=== PATIENT | male | born 1980 ===

== ENCOUNTER 2018-09-27 11:13 | Observation (INO) | payer OTHER ==
[2018-09-27] MEDS ORDERED: NITROGLYCERIN OINT 1 INCH/GM PACKET TOPICAL STA (11:33)
[2018-09-27] MEDS ORDERED: ASPIRIN 81 MG PO STA (11:33)
[2018-09-27] MEDS ORDERED: NITROGLYCERIN SL TABS 0.4 MG TAB SUBLINGUAL STA (11:33)
--- NOTE | 2018-09-27 12:09 | ED ---
General Adult HPI - General Chief complaint: Chest Pain Stated complaint: chest discomfort Source: patient, RN notes reviewed Mode of arrival: ambulatory Limitations: no limitations - History of Present Illness Initial comments: This is a 38-year-old male who presents emergency Department complaining of chest pain. Patient states it started 8:00 this morning. Patient states prior to that he felt fine this morning. Patient states the pain was a pressure in the left side of his chest. Patient states the pain is a pressure sensation and occasional increase in pain but not associated with movement or palpation. Patient states he might be a little bit short of breath today. Patient denies any diaphoretic episodes. Patient denies any nausea. Patient states he did have some tingling in both his hands. Patient denies any recent fever chills or cough. Patient denies abdominal pain patient denies nausea vomiting or diarrhea. Patient denies any headache patient denies numbness weakness. Patient states she hasn't seen a doctor in 10 years does not know if he has high blood pressure or high cholesterol. Patient does state he smokes. Patient denies any family history. - Related Data Home Medications Medication Instructions Recorded Confirmed No Known Home Medications 09/27/18 09/27/18 Allergies Allergy/AdvReac Type Severity Reaction Status Date / Time No Known Allergies Allergy Verified 09/27/18 11:33 Review of Systems ROS Statement: Those systems with pertinent positive or pertinent negative responses have been documented in the HPI. ROS Other: All systems not noted in ROS Statement are negative. Past Medical History Past Medical History: No Reported History History of Any Multi-Drug Resistant Organisms: None Reported Additional Past Surgical History / Comment(s): Vasectomy Past Psychological History: No Psychological Hx Reported Smoking Status: Former smoker Past Alcohol Use History: Occasional Past Drug Use History: Marijuana General Exam - General Exam Comments Initial Comments: GENERAL: Patient is well-developed and well-nourished. Patient is nontoxic and well- hydrated and is in mild distress. ENT: Neck is soft and supple. No significant lymphadenopathy is noted. Oropharynx is clear. Moist mucous membranes. Neck has full range of motion without eliciting any pain. EYES: The sclera were anicteric and conjunctiva were pink and moist. Extraocular movements were intact and pupils were equal round and reactive to light. Eyeli ds were unremarkable. PULMONARY: Unlabored respirations. Good breath sounds bilaterally. No audible rales rhonchi or wheezing was noted. CARDIOVASCULAR: There is a regular rate and rhythm without any murmurs gallops or rubs. Chest pain is not reproducible. There are no rashes in the area no erythema. ABDOMEN: Soft and nontender with normal bowel sounds. No palpable organomegaly was noted. There is no palpable pulsatile mass. SKIN: Skin is clear with no lesions or rashes and otherwise unremarkable. NEUROLOGIC: Patient is alert and oriented x3. Cranial nerves II through XII are grossly intact. Motor and sensory are also intact. Normal speech, volume and content. Symmetrical smile. MUSCULOSKELETAL: Normal extremities with adequate strength and full range of motion. No lower extremity swelling or edema. No calf tenderness. LYMPHATICS: No significant lymphadenopathy is noted PSYCHIATRIC: Normal psychiatric evaluation. Limitations: no limitations Course Vital Signs 09/27/18 11:16 Temperature 98.2 F Pulse Rate 88 Respiratory 18 Rate Blood Pressure 129/87 O2 Sat by Pulse 99 Oximetry Medical Decision Making - Medical Decision Making EKG shows sinus bradycardia 59 bpm WV interval is 164 QRS is 96 QT interval 410 QTC is 405 per patient's EKG shows no ST segment elevation or depression or T wave abnormalities are noted. Chest x-ray shows no acute abnormalities. Patient states nitro glycerin does seem to helped his chest pain. I indicated to the patient he needed to stay overnight and be heparinized and see cardiolo gy. Patient will talk to his and make that determination. I started heparin on the patient. Patient did finally agree to stay. I spoke with Dr. Whalen and he agreed to accept the patient I consult cardiology and I continued Nitropaste and aspirin on the floor. As well as heparin. - Lab Data Result diagrams: 09/27/18 11:55 09/27/18 11:55 Lab Results 09/27/18 09/27/18 09/27/18 Range/Units 11:55 11:55 11:55 WBC 6.4 (3.8-10.6) k/uL RBC 5.09 (4.30-5.90) m/uL Hgb 14.0 (13.0-17.5) gm/dL Hct 43.1 (39.0-53.0) % MCV 84.6 (80.0-100.0) fL MCH 27.6 (25.0-35.0) pg MCHC 32.6 (31.0-37.0) g/dL RDW 13.6 (11.5-15.5) % Plt Count 313 (150-450) k/uL Neutrophils % 61 % Lymphocytes % 27 % Monocytes % 6 % Eosinophils % 3 % Basophils % 1 % Neutrophils # 3.9 (1.3-7.7) k/uL Lymphocytes # 1.7 (1.0-4.8) k/uL Monocytes # 0.4 (0-1.0) k/uL Eosinophils # 0.2 (0-0.7) k/uL Basophils # 0.1 (0-0.2) k/uL PT 10.6 (9.0-12.0) sec INR 1.0 (<1.2) APTT 28.3 (22.0-30.0) sec D-Dimer <0.17 (<0.60) mg/L FEU Sodium 141 (137-145) mmol/L Potassium 4.1 (3.5-5.1) mmol/L Chloride 105 (98-107) mmol/L Carbon Dioxide 25 (22-30) mmol/L Anion Gap 11 mmol/L BUN 19 (9-20) mg/dL Creatinine 0.78 (0.66-1.25) mg/dL Est GFR (CKD-EPI)AfAm >90 (>60 ml/min/1.73 sqM) Est GFR (CKD-EPI)NonAf >90 (>60 ml/min/1.73 sqM) Glucose 96 (74-99) mg/dL Calcium 9.4 (8.4-10.2) mg/dL Magnesium 2.2 (1.6-2.3) mg/dL Total Bilirubin 0.7 (0.2-1.3) mg/dL AST 25 (17-59) U/L ALT 27 (21-72) U/L Alkaline Phosphatase 69 (38-126) U/L Troponin I (0.000-0.034) ng/mL Total Protein 7.4 (6.3-8.2) g/dL Albumin 4.7 (3.5-5.0) g/dL 09/27/18 Range/Units 11:55 WBC (3.8-10.6) k/uL RBC (4.30-5.90) m/uL Hgb (13.0-17.5) gm/dL Hct (39.0-53.0) % MCV (80.0-100.0) fL MCH (25.0-35.0) pg MCHC (31.0-37.0) g/dL RDW (11.5-15.5) % Plt Count (150-450) k/uL Neutrophils % % Lymphocytes % % Monocytes % % Eosinophils % % Basophils % % Neutrophils # (1.3-7.7) k/uL Lymphocytes # (1.0-4.8) k/uL Monocytes # (0-1.0) k/uL Eosinophils # (0-0.7) k/uL Basophils # (0-0.2) k/uL PT (9.0-12.0) sec INR (<1.2) APTT (22.0-30.0) sec D-Dimer (<0.60) mg/L FEU Sodium (137-145) mmol/L Potassium (3.5-5.1) mmol/L Chloride (98-107) mmol/L Carbon Dioxide (22-30) mmol/L Anion Gap mmol/L BUN (9-20) mg/dL Creatinine (0.66-1.25) mg/dL Est GFR (CKD-EPI)AfAm (>60 ml/min/1.73 sqM) Est GFR (CKD-EPI)NonAf (>60 ml/min/1.73 sqM) Glucose (74-99) mg/dL Calcium (8.4-10.2) mg/dL Magnesium (1.6-2.3) mg/dL Total Bilirubin (0.2-1.3) mg/dL AST (17-59) U/L ALT (21-72) U/L Alkaline Phosphatase (38-126) U/L Troponin I <0.012 (0.000-0.034) ng/mL Total Protein (6.3-8.2) g/dL Albumin (3.5-5.0) g/dL Critical Care Time Critical Care Time: Yes Total Critical Care Time: 35 Disposition Clinical Impression: Unstable angina pectoris Disposition: ADMITTED IP TO THIS HOSP Referrals: None,Stated [REFERRING] - 1-2 days Time of Disposition: 14:28
--- NOTE | 2018-09-27 12:13 | XR ---
EXAMINATION TYPE: XR chest 2V DATE OF EXAM: 09/27/2018 COMPARISON: None HISTORY: 38-year-old male with chest pain TECHNIQUE: PA and lateral views FINDINGS: The cardiomediastinal silhouette, aorta, and pulmonary vasculature are within normal limits. Lungs an d pleural spaces are clear. IMPRESSION: No acute cardiopulmonary process.
[2018-09-27 12:19] LABS: ALT 27 U/L (21-72); AST 25 U/L (17-59); African American GFR (CKD) >90 (>60 ml/min/1.73 sqM); Albumin 4.7 g/dL (3.5-5.0); Alkaline Phosphatase 69 U/L (38-126); Anion Gap 11 mmol/L; Blood Urea Nitrogen 19 mg/dL (9-20); Calcium 9.4 mg/dL (8.4-10.2); Carbon Dioxide 25 mmol/L (22-30); Chloride 105 mmol/L (98-107); Glucose 96 mg/dL (74-99); Magnesium 2.2 mg/dL (1.6-2.3); Non-African American GFR(CKD) >90 (>60 ml/min/1.73 sqM); Potassium 4.1 mmol/L (3.5-5.1); Sodium 141 mmol/L (137-145); Total Bilirubin 0.7 mg/dL (0.2-1.3); Total Protein 7.4 g/dL (6.3-8.2)
[2018-09-27 12:21] LABS: D-Dimer <0.17 mg/L FEU (<0.60); Partial Thromboplastin Time 28.3 sec (22.0-30.0); Prothrombin Time 10.6 sec (9.0-12.0)
[2018-09-27 12:31] LABS: Basophils # (A) 0.1 k/uL (0-0.2); Basophils % (A) 1 %; Eosinophils # (A) 0.2 k/uL (0-0.7); Eosinophils % (A) 3 %; HCT 43.1 % (39.0-53.0); Lymphocytes # (A) 1.7 k/uL (1.0-4.8); Lymphocytes % (A) 27 %; MCH 27.6 pg (25.0-35.0); MCHC 32.6 g/dL (31.0-37.0); MCV 84.6 fL (80.0-100.0); Mean Platelet Volume 6.4; Monocytes # (A) 0.4 k/uL (0-1.0); Monocytes % (A) 6 %; Neutrophils # (A) 3.9 k/uL (1.3-7.7); Neutrophils % (A) 61 %; Platelet Count 313 k/uL (150-450); RBC 5.09 m/uL (4.30-5.90); RDW 13.6 % (11.5-15.5); WBC 6.4 k/uL (3.8-10.6)
[2018-09-27] MEDS ORDERED: HEPARIN SODIUM,PORCINE 5,000 UNIT/ML 1 ML VIAL IV ONE (14:26)
[2018-09-27] MEDS ORDERED: NITROGLYCERIN SL TABS 0.4 MG TAB SUBLINGUAL PRN (14:28)
[2018-09-27] MEDS ORDERED: HEPARIN SOD,PORK IN 0.45% NACL 25,000 UNIT in 0.45% NACL 1 250ML.BAG IV SCH (14:30)
[2018-09-27] MEDS: NITROGLYCERIN OINT 1 INCH/GM PACKET TOPICAL SCH ×2 (18:32→22:07)
--- NOTE | 2018-09-27 21:51 | HP ---
HISTORY AND PHYSICAL CHIEF COMPLAINT: Left lateral chest pain. 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 He has been having some discomfort in the left lower lateral chest wall area on and off for several years. This started to get a bit worse on the day of admission and he started to become very anxious. He became a bit diaphoretic and had tingling in his fingertips and decided to come to the emergency room. He had no shortness of breath, nausea, etc. There was no radiation of the pain. He has had no fever, chills, sputum production, hemoptysis, etc. but he has otherwise been in perfect health. He has no history of hypertension. REVIEW OF SYSTEMS: He has had no other symptoms whatsoever. Past medical history, family history, personal and social histories reveal that he had a vasectomy and he is not allergic to any medication or taking any. He has a negative family history for heart disease. He does not smoke. He drinks some alcohol, but moderately. He does not use any drugs. PHYSICAL EXAM: Blood pressure 129/87, temperature 98.2, pulse 88, respirations 18. In general, he appeared to be well developed, well nourished, no acute distress. Skin color is normal. Skin is warm, dry. Lymph nodes not enlarged. Head, ears, eyes, nose, mouth, and throat were normal. Neck veins not distended. Chest is clear to auscultation, percussion, and there is no tenderness in the left lateral chest wall or costal margin area. Cardiac exam is normal. No murmurs or extra sounds. Abdomen is soft, nontender without visceromegaly or masses. Bowel sounds present. Extremities normal. Neurologically he is intact. IMPRESSION: 1. Left lower lateral chest wall pain, intermittent over 2 years. 2. Doubt cardiac disease. PLAN: 1. Bed rest. 2. IV fluids. 3. Serial EKGs and enzymes. 4. Cardiology consult. 5. He could be a candidate for further evaluation as an outpatient to rule out any other process including something in the left upper quadrant. MMODL / IJN: [id number] /
[2018-09-28 03:30] LABS: Cholesterol 193 mg/dL (<200); HDL Cholesterol 39 mg/dL (40-60); LDL Cholesterol,Calculated 135 mg/dL (0-99); Triglycerides 96 mg/dL (<150)
[2018-09-28] MEDS: NITROGLYCERIN OINT 1 INCH/GM PACKET TOPICAL SCH (05:11)
[2018-09-28 05:57] VITALS: TEMP 97.9
[2018-09-28 07:51] VITALS: BP 104/62; PULSE 64; RESP 16
[2018-09-28] MEDS ORDERED: ASPIRIN 325 MG TAB PO SCH (09:00)
[2018-09-28] MEDS ORDERED: ATORVASTATIN 40 MG TAB PO SCH (09:00)
--- NOTE | 2018-09-28 10:17 | P.CRDCN ---
History of Present Illness History of present illness: This is a pleasant 38-year-old male with no significant past medical history. He is a former smoker however he quit one year ago. He does not follow regularly with a physician. He denies prior history of coronary artery disease, hypertension, dyslipidemia and diabetes mellitus. We've seen in consultation secondary to chest discomfort. He states yesterday morning while at work he experienced a pain under the left breast felt like a nerve pain that was constant from [id number]. It was rather constant with no specific aggravating or alleviating factors. There was no radiation to the arm, back, neck or jaw. There is no associated shortness of breath, dizziness, palpitat ions, nausea, vomiting or diaphoresis. When he arrived to the emergency department he was having ongoing chest discomfort and was given nitro paste which did relieve chest discomfort. He has had no further symptoms of chest discomfort since arriving at the hospital. He is seen and examined resting comfortably in no acute distress. EKG reveals sinus mechanism no acute ST or T wave abnormalities noted. Heart rate 59. Chest x-ray is negative for an acute cardiopulmonary process. Laboratory data reviewed, WBC 6.4, hemoglobin 14, platelets 313, d-dimer less than 0.17, sodium 141, potassium 4.1, creatinine 0.78, magnesium 2.2, cardiac enzymes negative 3, LDL 135 and HDL 39. He takes no daily cardiac medications. At the time of my exam: CONSTITUTIONAL: Denies fever. Denies chills. EYES: Denies blurred vision. Denies vision changes. Denies eye pain. EARS, NOSE, MOUTH & THROAT: Denies headache. Denies sore throat. Denies ear pain. CARDIOVASCULAR: Denies chest pain. Denies shortness of breath. Denies orthopnea. Denies PND. Denies palpitations. RESPIRATORY: Denies cough. GASTROINTESTINAL: Denies abdominal pain. Denies diarrhea. Denies constipation. Denies nausea. Denies vomiting. MUSCULOSKELETAL: Denies myalgias. INTEGUMENTARY: Denies pruitis. Denies rash. NEUROLOGIC: Denies numbness. Denies tingling. Denies weakness. PSYCHIATRIC: Denies anxiety. Denies depression. ENDOCRINE: Denies fatigue. Denies weight change. Denies polydipsia. Denies polyurina. GENITOURINARY: Denies burning, hematuria or urgency with micturation. HEMATOLOGIC: Denies history of anemia. Denies bleeding. Blood pressure 104/62 heart rate 64 afebrile maintaining oxygen saturation on room air GENERAL: This is a 38-year-old occasion male in no apparent distress at the time of my examination. HEENT: Head is atraumatic, normocephalic. Pupils are equal, round. Sclerae anicteric. Conjunctivae are clear. Mucous membranes of the mouth are moist. Neck is supple. There is no jugular venous distention. No carotid bruit is heard. LUNGS: Clear to auscultation no wheezes, rales or rhonchi. No chest wall tendern ess is noted on palpation or with deep breathing. HEART: Regular rate and rhythm without murmurs, rubs or gallops. S1 and S2 heard. ABDOMEN: Soft, nontender. Bowel sounds are heard. No organomegaly noted. EXTREMITIES: No evidence of peripheral edema and no calf tenderness noted. VASCULAR: Radial and dorsalis pedis pulses palpated, no evidence of clubbing. NEUROLOGIC: Patient is awake, alert and oriented x3. ASSESSMENT Chest pain, atypical for angina. An acute coronary event has been ruled out. Dyslipidemia PLAN An acute coronary event has been ruled out. Patient is given the option of i npatient stress testing versus outpatient and he requests to have this testing done in the outpatient setting. This is reasonable considering he has no risk factors for premature coronary artery disease, no baseline EKG abnormalities and negative cardiac enzymes. Lipid profile reveals an elevated LDL cholesterol of 135. Recommend initiation of atorvastatin 40 mg daily along with diet and exercise. Follow-up in the office with Dr. Montgomery in 1-2 weeks for outpatient stress testing. Thank you kindly for this consultation. Nurse Practitioner note has been reviewed, I agree with a documented findings and plan of care. Patient was seen and examined. Past Medical History Past Medical History: No Reported History History of Any Multi-Drug Resistant Organisms: None Reported Additional Past Surgical History / Comment(s): Vasectomy Past Anesthesia/Blood Transfusion Reactions: No Reported Reaction Past Psychological History: No Psychological Hx Reported Smoking Status: Former smoker Past Alcohol Use History: Occasional Past Drug Use History: Marijuana - Past Family History Father Family Medical History: No Reported History Mother Family Medical History: No Reported History Medications and Allergies Home Medications Medication Instructions Recorded Confirmed Type Atorvastatin [Lipitor] 40 mg PO DAILY #90 tab 09/28/18 Rx Allergies Allergy/AdvReac Type Severity Reaction Status Date / Time No Known Allergies Allergy Verified 09/27/18 11:33 Physical Exam Vitals: Vital Signs Temp Pulse Pulse Resp BP BP Pulse Ox 09/28/18 07:50 97.9 F 64 16 104/62 98 09/28/18 04:00 97.9 F 77 14 96/58 98 09/27/18 21:55 97.5 F L 67 15 104/62 98 09/27/18 20:59 98.0 F 71 12 106/79 97 09/27/18 18:45 59 L 17 97/69 98 09/27/18 11:16 98.2 F 88 18 129/87 99 Intake and Output 09/27/18 09/28/18 09/28/18 22:59 06:59 14:59 Intake Total 76.906 Balance 76.906 Intake: Intake, IV Titration 76.906 Amount Heparin Sod,Pork in 0.45% 76.906 NaCl 25,000 unit In 0.45 % NaCl 1 250ml.bag @ 12 UNITS/KG/HR 9.417 mls/hr IV .Q24H [facility] Rx#: [id number] Other: Voiding Method Toilet # Voids 1 Results 09/27/18 11:55 09/27/18 11:55 Cardiac Enzymes 09/27/18 09/27/18 09/27/18 Range/Units 11:55 11:55 15:07 AST 25 (17-59) U/L Troponin I <0.012 <0.012 (0.000-0.034) ng/mL 09/27/18 Range/Units 22:11 AST (17-59) U/L Troponin I <0.012 (0.000-0.034) ng/mL Coagulation 09/27/18 09/27/18 Range/Units 11:55 22:11 PT 10.6 (9.0-12.0) sec APTT 28.3 59.0 H (22.0-30.0) sec Lipids 09/27/18 Range/Units 11:55 Triglycerides 96 (<150) mg/dL Cholesterol 193 (<200) mg/dL HDL Cholesterol 39 L (40-60) mg/dL CBC 09/27/18 Range/Units 11:55 WBC 6.4 (3.8-10.6) k/uL RBC 5.09 (4.30-5.90) m/uL Hgb 14.0 (13.0-17.5) gm/dL Hct 43.1 (39.0-53.0) % Plt Count 313 (150-450) k/uL Comprehensive Metabolic Panel 09/27/18 Range/Units 11:55 Sodium 141 (137-145) mmol/L Potassium 4.1 (3.5-5.1) mmol/L Chloride 105 (98-107) mmol/L Carbon Dioxide 25 (22-30) mmol/L BUN 19 (9-20) mg/dL Creatinine 0.78 (0.66-1.25) mg/dL Glucose 96 (74-99) mg/dL Calcium 9.4 (8.4-10.2) mg/dL AST 25 (17-59) U/L ALT 27 (21-72) U/L Alkaline Phosphatase 69 (38-126) U/L Total Protein 7.4 (6.3-8.2) g/dL Albumin 4.7 (3.5-5.0) g/dL Current Medications Generic Name Dose Route Start Last Admin Trade Name Freq PRN Reason Stop Dose Admin Aspirin 325 mg 09/28/18 09:00 Aspirin PO DAILY [facility] Heparin Sodium/Sodium Chloride 250 mls @ 9.417 mls/hr 09/27/18 14:30 09/27/18 23:08 25,000 unit/ Sodium Chloride IV 12 units/kg/hr .Q24H [facility] 9.417 mls/hr Titration Protocol 12 UNITS/KG/HR Nitroglycerin 1 inch 09/27/18 18:00 09/28/18 05:11 Nitro-Bid Oint TOPICAL Not Given Q6HR [facility] Nitroglycerin 0.4 mg 09/27/18 14:28 Nitrostat SUBLINGUAL Q5M PRN Chest Pain Intake and Output 09/27/18 09/28/18 09/28/18 22:59 06:59 14:59 Intake Total 76.906 Balance 76.906 Intake: Intake, IV Titration 76.906 Amount Heparin Sod,Pork in 0.45% 76.906 NaCl 25,000 unit In 0.45 % NaCl 1 250ml.bag @ 12 UNITS/KG/HR 9.417 mls/hr IV .Q24H [facility] Rx#: [id number] Other: Voiding Method Toilet # Voids 1 09/27/18 11:55 09/27/18 11:55
--- NOTE | 2018-09-28 13:16 | DS ---
DISCHARGE SUMMARY DATE OF SERVICE: 09/28/2018 CHIEF COMPLAINT: Left lateral chest wall pain. HISTORY OF PRESENT ILLNESS AND PHYSICAL EXAM: Details of this man's history and physical can be found in the initial workup. LABORATORY STUDIES: While he was in the hospital he had laboratory studies, details of which can be found in the laboratory section of his chart. COURSE IN HOSPITAL: After admission, he was placed on bedrest, started on intravenous fluids and had serial EKGs and enzymes and everything was normal. He was seen by Cardiology and it was felt he could be discharged. He will go home on his usual activity and diet and no medications. He will come into the office in about a week when he gets back from [place] and we will look at further possibilities causing his left lateral chest wall pain. FINAL DIAGNOSIS: Left lateral chest wall pain. OPERATIONS: None. CONSULTATION: Cardiology. He is improved. CURTIS / MANDA: [id number] /
== END 2018-09-28 10:34 | disposition home or self-care (01) ==
LOC: EC 11:13 → 1SOBS 14:28
PROVIDERS: ADMIT Family Medicine; ATTEND Family Medicine
DX: R07.89 Other chest pain (principal); E78.5 Hyperlipidemia, unspecified; R20.2 Paresthesia of skin; R61 Generalized hyperhidrosis; Z98.52 Vasectomy status; Z87.891 Personal history of nicotine dependence
CPT/HCPCS: 96366 ×3; 96376; 96365; 99291; 36415; 93005; 85379; 80061; 80053; 83735; 84484; 85025; 85610; 85730 ×2; 71046; G0378 ×2; J1644 ×2